=== PATIENT | male | born 1975 | race Asian ===

== ENCOUNTER 2020-11-01 17:50 | Emergency (ER) | payer BC ==
[~2020-11-01] VITALS: Ht 157.5 cm; Wt 68.0 kg
[2020-11-01] MEDS ORDERED: normal saline 1000ml 1,000 ML IV ONE (18:05)
[2020-11-01] MEDS ORDERED: acetaminophen 325mg tablet PO ONE (18:05)
--- NOTE | 2020-11-01 18:20 | NUR ---
NO ROOMS AVAILABLE INSIDE, STARTED IV AND 1ST LITER NS INFUSING W/O
[2020-11-01 18:24] LABS: BASOPHILS % (AUTO) 0.2 % (0-1); EOSINOPHILS % (AUTO) 0.3 % (0-6); HEMATOCRIT 38.7 % (42.0-52.0); HEMOGLOBIN 13.2 g/dl (14.0-17.9); LYMPHOCYTES # (AUTO) 0.7 X10'3 (1.1-4.8); LYMPHOCYTES % (AUTO) 12.5 % (21-51); MEAN CORPUSCULAR HEMOGLOBIN 28.3 PG (27.0-31.0); MEAN CORPUSCULAR HGB CONC 34.1 g/dL (33.0-36.5); MEAN CORPUSCULAR VOLUME 83.2 FL (78-98); MEAN PLATELET VOLUME 7.4 FL (7.4-10.4); MONOCYTES # (AUTO) 0.4 X10'3 (0-0.9); NEUTROPHILS # (AUTO) 4.2 X10'3 (1.8-7.7); PLATELET COUNT 151 X10'3 (140-440); RED BLOOD COUNT 4.65 X10'6 (4.70-6.10); RED CELL DISTRIBUTION WIDTH 12.7 % (11.5-14.5); WHITE BLOOD COUNT 5.2 X10'3 (4.5-11.0)
[2020-11-01 18:45] LABS: ALANINE AMINOTRANSFERASE 36 U/L (12-78); ALBUMIN 3.5 G/DL (3.4-5.0); ALKALINE PHOSPHATASE 45 IU/L (46-116); ANION GAP 10 (8-16); ASPARTATE AMINO TRANSFERASE 34 U/L (10-37); BILIRUBIN,TOTAL 0.5 MG/DL (0.1-1.0); BLOOD UREA NITROGEN 12 MG/DL (7-18); BUN/CREATININE RATIO 10.2 (5.4-32.0); CALCIUM 7.6 MG/DL (8.5-10.1); CHLORIDE 99 MMOL/L (99-107); CREATININE 1.18 MG/DL (0.60-1.10); GLUCOSE 99 MG/DL (70-104); POTASSIUM 4.2 MMOL/L (3.5-5.1); SODIUM 134 MMOL/L (135-145); TOTAL CARBON DIOXIDE 25.3 MMOL/L (24-32); TOTAL PROTEIN 7.1 G/DL (6.4-8.2); eGFR 67 ML/MIN
[2020-11-01] MEDS ORDERED: DEC4T PO (19:32)
[2020-11-01] MEDS ORDERED: BENZ-16 PO (19:40)
[2020-11-01 20:20] VITALS: BP 102/59
== END 2020-11-01 20:22 | disposition home or self-care (01) ==
LOC: ER 17:51
DX: U07.1 COVID-19 (principal); R53.83 Other fatigue; R07.89 Other chest pain; M79.10 Myalgia, unspecified site; R05 Cough; R19.7 Diarrhea, unspecified
CPT/HCPCS: 36415; 71045; 80053; 85025; 96360; 99284; J7030

== ENCOUNTER 2020-11-04 19:18 | Emergency (ER) | payer BC ==
[~2020-11-04] VITALS: Ht 172.7 cm; Wt 68.2 kg
[~2020-11-04 19:18] MED LIST: BENZ-16 PO; DEC4T PO
[2020-11-04 19:28] VITALS: BP 110/83
[2020-11-04] MEDS ORDERED: ALBU6.7H9 INH (20:48)
[2020-11-04] MEDS ORDERED: DEXA4TAB67 PO (20:48)
[2020-11-04] MEDS ORDERED: AZIT500T PO (20:48)
== END 2020-11-04 20:55 | disposition home or self-care (01) ==
LOC: ER 19:19
DX: U07.1 COVID-19 (principal); J12.82 Pneumonia due to coronavirus disease 2019; Z79.899 Other long term (current) drug therapy
CPT/HCPCS: 71045; 99283

== ENCOUNTER 2020-11-06 09:42 | Emergency (ER) | payer BC ==
[~2020-11-06] VITALS: Ht 157.5 cm; Wt 68.2 kg
[~2020-11-06 09:42] MED LIST changes: +ALBU6.7H9 INH; +AZIT500T PO; +DEXA4TAB67 PO
[2020-11-06 10:33] LABS: BASOPHILS % (AUTO) 0.1 % (0-1); EOSINOPHILS % (AUTO) 0 % (0-6); HEMATOCRIT 41.8 % (42.0-52.0); HEMOGLOBIN 14.2 g/dl (14.0-17.9); LYMPHOCYTES # (AUTO) 0.7 X10'3 (1.1-4.8); LYMPHOCYTES % (AUTO) 10.3 % (21-51); MEAN CORPUSCULAR VOLUME 82.3 FL (78-98); MEAN PLATELET VOLUME 7.3 FL (7.4-10.4); MONOCYTES # (AUTO) 0.8 X10'3 (0-0.9); MONOCYTES % (AUTO) 10.4 % (2-12); NEUTROPHILS # (AUTO) 5.7 X10'3 (1.8-7.7); NEUTROPHILS % (AUTO) 79.2 % (42-75); PLATELET COUNT 292 X10'3 (140-440); RED BLOOD COUNT 5.08 X10'6 (4.70-6.10); RED CELL DISTRIBUTION WIDTH 12.8 % (11.5-14.5); WHITE BLOOD COUNT 7.2 X10'3 (4.5-11.0)
[2020-11-06 10:53] LABS: ALANINE AMINOTRANSFERASE 57 U/L (12-78); ALBUMIN 3.4 G/DL (3.4-5.0); ALBUMIN/GLOBULIN RATIO 0.9 (1.1-1.5); ALKALINE PHOSPHATASE 43 IU/L (46-116); ANION GAP 11 (8-16); ASPARTATE AMINO TRANSFERASE 37 U/L (10-37); BILIRUBIN,TOTAL 0.6 MG/DL (0.1-1.0); BLOOD UREA NITROGEN 15 MG/DL (7-18); BUN/CREATININE RATIO 14.7 (5.4-32.0); CALCIUM 8.6 MG/DL (8.5-10.1); CHLORIDE 104 MMOL/L (99-107); CREATININE 1.02 MG/DL (0.60-1.10); GLUCOSE 144 MG/DL (70-104); POTASSIUM 3.8 MMOL/L (3.5-5.1); SODIUM 141 MMOL/L (135-145); TOTAL CARBON DIOXIDE 25.6 MMOL/L (24-32); TOTAL PROTEIN 7.3 G/DL (6.4-8.2); eGFR 79 ML/MIN
[2020-11-06] MEDS ORDERED: CASIRIVIMAB (REGN10933) 1332MG 600 MG, IMDEVIMAB (REGN10987) 1332mg 600 MG in normal sa... IV ONE (11:25)
[2020-11-06 11:41] LABS: C-REACTIVE PROTEIN 0.73 MG/DL (0.0-0.5); LACTATE DEHYDROGENASE 421 U/L (85-227)
--- NOTE | 2020-11-06 12:43 | NUR ---
PT. HAD TESTED POSITIVE AT [facility] ON September
[2020-11-06 12:50] LABS: D-DIMER 1.02 MG/L FEU (0-0.50)
[2020-11-06 13:49] VITALS: BP 130/85
[2020-11-06] MEDS ORDERED: DEXA6TAB6 PO (14:03)
== END 2020-11-06 14:36 | disposition home or self-care (01) ==
LOC: ER 09:44
DX: U07.1 COVID-19 (principal); J12.82 Pneumonia due to coronavirus disease 2019; R06.02 Shortness of breath; Z79.899 Other long term (current) drug therapy
CPT/HCPCS: 36415; 71045; 80053; 83615; 83880; 85025; 85379; 86140; 93005; 99285; M0243; Q0243